=== PATIENT | male | born 1995 | race Caucasian/White ===

== ENCOUNTER 2017-04-11 20:21 | Emergency (ER) | payer MEDICAID, OTHER ==
[~2017-04-11] VITALS: Ht 170.2 cm; Wt 85.0 kg
[2017-04-11 20:55] VITALS: Ht 170.2 cm; Wt 85.0 kg
[2017-04-11] MEDS ORDERED: ONDANSETRON (ODT) 4 MG TAB ODT STA (21:25)
[2017-04-11] MEDS ORDERED: HYDROCODONE/APAP (5/325) TAB PO ONE (21:30)
[2017-04-11 22:01] LABS: ADD SCAN DIFF NO
[2017-04-11 22:06] LABS: BASOPHIL # 0.1 10^3/ul (0.0-0.1); BASOPHILS % 0.4 % (0.0-2.0); EOSINOPHILS # 0.7 10^3/ul (0.0-0.5); EOSINOPHILS % 4.6 % (0.0-7.0); HEMATOCRIT 45.2 % (42.0-52.0); HEMOGLOBIN 15.4 g/dl (14.0-18.0); LYMPHOCYTES # 2.5 10^3/ul (0.8-2.9); LYMPHOCYTES % 16.8 % (15.0-51.0); MEAN CORPUSCULAR HEMOGLOBIN 28.9 pg (29.0-33.0); MEAN CORPUSCULAR HGB CONC 34.1 g/dl (32.0-37.0); MEAN CORPUSCULAR VOLUME 84.8 fl (82.0-101.0); MEAN PLATELET VOLUME 9.3 fl (7.4-10.4); MONOCYTE # 0.9 10^3/ul (0.3-0.9); NEUTROPHIL # 10.6 10^3/ul (1.6-7.5); NEUTROPHILS % 71.9 % (39.0-77.0); PLATELET COUNT 313 10^3/UL (140-415); RED BLOOD COUNT 5.33 10^6/ul (4.70-6.10); RED CELL DISTRIBUTION WIDTH 12.3 % (11.5-14.5); WHITE BLOOD COUNT 14.7 10^3/ul (4.8-10.8)
--- NOTE | 2017-04-11 22:15 | RADRPT ---
PROCEDURE: CT abdomen and pelvis without contrast. CLINICAL INDICATION: Abdominal Pain TECHNIQUE: CT scan of the abdomen and pelvis without contrast was performed and is reconstructed a t 2.5 mm contiguous axial intervals from the dome of the diaphragm to the inferior pubic rami.. The patient was scanned without intravenous contrast. Sagittal and coronal reformatted images were obt ained from the axial source images. The calculated radiation dose measures none 701 mGy centimeters. The CTDI measures 12th mGy. COMPARISON: None. FINDINGS: The lung bases are clear of any infiltrate or nodule. No effusion is seen. The liver is of normal size and contour. There is fatty infiltration. No mass or ductal dilatation is seen. No gallstones are visualized. No splenic, adrenal or pancreatic abnormalities present. Kidneys are of normal size and contour. No calculus or solid masses present. 5 mm cortical cyst is present in the lower pole of the right kidney. There is mild right hydroureter nephrosis with a 4 mm calculus at the ureterovesicular junction. The left intrarenal collecting system and ureter are normal.. No bladder mass or stone is present. Prostate and seminal vesicles are normal. There is no aneurysm. No adenopathy is present. No bowel mass or obstruction is present. The appendix is normal. No phlegmon, ascites or pneumop eritoneum is visualized. The osseous structures are intact. IMPRESSION: Mild right hydroureter nephrosis with 4 mm calculus ureterovesicular junction. Tiny right renal cyst. Fatty liver. .Marquise Ignacio MD, Date Time Electronically viewed and signed by .Marquise Ignacio MD, on 04/11/2017 22:15 .A/
[2017-04-11 22:20] LABS: ADD UMIC YES; UR ASCORBIC ACID 40 mg/dL (NEGATIVE); UR BILIRUBIN (Dip) NEGATIVE (NEGATIVE); UR BLOOD (Dip) 2+ mg/dL (NEGATIVE); UR CLARITY CLEAR (CLEAR); UR COLOR YELLOW (YELLOW); UR GLUCOSE (Dip) NEGATIVE (NEGATIVE); UR KETONES (Dip) NEGATIVE (NEGATIVE); UR LEUKOCYTE ESTERASE (Dip) NEGATIVE Leu/ul (NEGATIVE); UR MUCUS FEW /HPF (NONE SEEN); UR NITRITE (Dip) NEGATIVE (NEGATIVE); UR RBC 24 /HPF (0-5); UR SPECIFIC GRAVITY (Dip) 1.026 (1.003-1.030); UR TOTAL PROTEIN (Dip) NEGATIVE (NEGATIVE); UR UROBILINOGEN (Dip) NEGATIVE (NEGATIVE)
[2017-04-11 22:28] LABS: ALBUMIN 5.3 g/dl (3.3-4.9); ALBUMIN/GLOBULIN RATIO 1.65; BILIRUBIN,INDIRECT 0.4 mg/dl (0-1.1); BILIRUBIN,TOTAL 0.4 mg/dl (0.2-1.3); CALCIUM 9.7 mg/dl (8.4-10.2); CREATININE 1.3 mg/dl (0.61-1.24); POTASSIUM 3.8 mmol/L (3.5-5.1); TOTAL PROTEIN 8.5 g/dl (6.1-8.1)
[2017-04-11] MEDS ORDERED: HYDR-906 PO (22:42)
[2017-04-11] MEDS ORDERED: TAMS-14 PO (22:43)
[2017-04-11 23:02] VITALS: BP 126/88; PULSE 60; RESP 16; TEMP 98.6
--- NOTE | 2017-04-12 01:03 | ERD ---
ER Documentation Chief Complaint Date/Time DATE: 04/12/17 TIME: 00:53 Chief Complaint AP x 2 months HPI This patient is a 22-year-old male presenting to the emergency department with complaints of right sided flank pain ongoing intermittently for the past 2 months. Symptoms have been worsening over the past 15 days. Aggravating factors include eating. The patient additionally had 3 episodes of vomiting today that was nonbilious and nonbloody. He denies diarrhea, fevers, chills, or other symptoms currently. ROS All systems reviewed and are negative except as per history of present illness. Medications Home Meds Active Scripts Tamsulosin Hcl* (Flomax*) 0.4 Mg Cap.er.24h, 0.4 MG PO QPM, #20 CAP Prov:JOAQUIN TYSON PA-C 04/11/17 Hydrocodone/Acetaminophen ([place] 5-325 Tablet) 1 Each Tablet, 1 TAB PO Q6H Y for PAIN, #10 TAB Prov:JOAQUIN TYSNO PA-C 04/11/17 Allergies Allergies: Coded Allergies: No Known Allergy (Unverified , 04/11/17) PMhx/Soc History of Surgery: No Anesthesia Reaction: No Hx Neurological Disorder: No Hx Respiratory Disorders: No Hx Cardiac Disorders: No Hx Psychiatric Problems: Yes (ANXIETY AND DEPRESSION.) Hx Alcohol Use: No Hx Substance Use: No Hx Tobacco Use: No Smoking Status: Never smoker Physical Exam Vitals Vital Signs Date Time Temp Pulse Resp B/P Pulse Ox O2 Delivery O2 Flow Rate FiO2 04/11/17 23:02 98.6 60 16 126/88 97 Room Air 04/11/17 20:55 98.4 85 18 142/96 Physical Exam Const: Nontoxic, well-appearing male in no acute distress. Patient is holding his right flank area. Head: Atraumatic Eyes: Normal Conjunctiva ENT: Normal External Ears, Nose and Mouth. Neck: Full range of motion..~ No meningismus. Resp: Clear to auscultation bilaterally Cardio: Regular rate and rhythm, no murmurs Abd: Soft, non tender, non distended. Normal bowel sounds Skin: No petechiae or rashes Back: No midline spinal tenderness. Right flank tenderness on palpation. No CVA tenderness. Ext: No cyanosis, or edema Neur: Awake and alert Psych: Normal Mood and Affect Result Diagram: 04/11/17213904/11/172139 Results 24 hrs Laboratory Tests Test 04/11/17 21:40 04/11/17 21:46 White Blood Count 14.710^3/ul Red Blood Count 5.3310^6/ul Hemoglobin 15.4g/dl Hematocrit 45.2% Mean Corpuscular Volume 84.8fl Mean Corpuscular Hemoglobin 28.9pg Mean Corpuscular Hemoglobin Concent 34.1g/dl Red Cell Distribution Width 12.3% Platelet Count 95354^3/UL Mean Platelet Volume 9.3fl Neutrophils % 71.9% Lymphocytes % 16.8% Monocytes % 6.0% Eosinophils % 4.6% Basophils % 0.4% Nucleated Red Blood Cells % 0.0/100WBC Neutrophils # 10.610^3/ul Lymphocytes # 2.510^3/ul Monocytes # 0.910^3/ul Eosinophils # 0.710^3/ul Basophils # 0.110^3/ul Nucleated Red Blood Cells # 0.010^3/ul Sodium Level 138mmol/L Potassium Level 3.8mmol/L Chloride Level 102mmol/L Carbon Dioxide Level 21mmol/L Anion Gap 19 Blood Urea Nitrogen 19mg/dl Creatinine 1.30mg/dl Glucose Level 98mg/dl Calcium Level 9.7mg/dl Total Bilirubin 0.4mg/dl Direct Bilirubin 0.00mg/dl Indirect Bilirubin 0.4mg/dl Aspartate Amino Transf (AST/SGOT) 41IU/L Alanine Aminotransferase (ALT/SGPT) 48IU/L Alkaline Phosphatase 101IU/L Total Protein 8.5g/dl Albumin 5.3g/dl Globulin 3.20g/dl Albumin/Globulin Ratio 1.65 Lipase 88U/L Urine Color YELLOW Urine Clarity CLEAR Urine pH 5.0 Urine Specific Caret 1.026 Urine Ketones NEGATIVEmg/dL Urine Nitrite NEGATIVEmg/dL Urine Bilirubin NEGATIVEmg/dL Urine Urobilinogen NEGATIVEmg/dL Urine Leukocyte Esterase NEGATIVELeu/ul Urine Microscopic RBC 24/HPF Urine Microscopic WBC 1/HPF Urine Calcium Oxalate Crystals FEW/HPF Urine Mucus FEW/HPF Urine Hemoglobin 2+mg/dL Urine Glucose NEGATIVEmg/dL Urine Total Protein NEGATIVEmg/dl Current Medications Medications (Trade) Dose Ordered Sig/Shannan Route PRN Reason Start Time Stop Time Status Last Admin Dose Admin Acetaminophen/ Hydrocodone Bitart ([place] (5/325)) 1 tab ONCE ONCE PO 04/11/17 21:30 04/11/17 21:31 DC 04/11/17 21:37 Ondansetron HCl (Zofran Odt) 4 mg ONCE STAT ODT 04/11/17 21:25 04/11/17 21:28 DC 04/11/17 21:37 [place] [id number] Radiology Main Line: [phone] DIAGNOSTIC IMAGING REPORT Patient: ANDREW RIVERA : 1995 Age: 22 Sex: M MR #: [id number] DOS: 04/11/172124 Ordering MD: JOAQUIN TYSON PA-C Location: [facility] Room/Bed: PROCEDURE: CT abdomen and pelvis without contrast. CLINICAL INDICATION: Abdominal Pain TECHNIQUE: CT scan of the abdomen and pelvis without contrast was performed and is reconstructed at 2.5 mm contiguous axial intervals from the dome of the diaphragm to the inferior pubic rami.. The patient was scanned without intravenous contrast. Sagittal and coronal reformatted images were obtained from the axial source images. The calculated radiation dose measures none 701 mGy centimeters. The CTDI measures 12th mGy. COMPARISON: None. FINDINGS: The lung bases are clear of any infiltrate or nodule. No effusion is seen. The liver is of normal size and contour. There is fatty infiltration. No mass or ductal dilatation is seen. No gallstones are visualized. No splenic, adrenal or pancreatic abnormalities present. Kidneys are of normal size and contour. No calculus or solid masses present. 5 mm cortical cyst is present in the lower pole of the right kidney. There is mild right hydroureter nephrosis with a 4 mm calculus at the ureterovesicular junction. The left intrarenal collecting system and ureter are normal.. No bladder mass or stone is present. Prostate and seminal vesicles are normal. There is no aneurysm. No adenopathy is present. No bowel mass or obstruction is present. The appendix is normal. No phlegmon , ascites or pneumoperitoneum is visualized. The osseous structures are intact. IMPRESSION: Mild right hydroureter nephrosis with 4 mm calculus ureterovesicular junction. Tiny right renal cyst. Fatty liver. .Marquise Ignacio MD, MD Date Time Electronically viewed and signed by .Marquise Ignacio MD, MD on 04/11/2017 22: 15 .A/ CC: JOAQUIN TYSON PA-C Procedures/[facility] EMERGENCY DEPARTMENT COURSE / MEDICAL DECISION MAKING: This is a 22-year-old male who comes to the emergency room secondary to complaints of right flank pain The patient was given p.o. Zofran and p.o. [place] in the department. On re- evaluation, the patient was feeling improved. Lab results reviewed. CBC: Slight leukocytosis Chemistry: No significant acute abnormalities UA: Findings positive for oxalate crystals indicating kidney stone Lipase: Within normal limits Radiology: CT scan abdomen without contrast impression: Mild right hydroureter nephrosis with 4 mm calculus ureterovesicular junction. Tiny right renal cyst. Fatty liver. The primary diagnosis is kidney stone I have low suspicion for cholecystitis, bowel obstruction, appendicitis, mesenteric ischemia, sepsis, or other emergent conditions at this time. Discharge: I have discussed the lab results and diagnostic findings with the patient and answered any questions or concerns. The patient was discharged with a prescription for [place] and Flomax. The patient was advised to followup with their PMD in 1-2 days and to return to the Emergency Department if there are any new or worsening symptoms. The patient understood and agreed with the diagnosis, treatment and plan. The patient is stable for discharge at this time. I discussed this case with Dr. Kay Scott, supervising ED physician who agreed with the history, clinical examination, assessment, plan, and overall ED course. Departure Diagnosis: Primary Impression: Kidney stone Condition: Fair Patient Instructions: Kidney Stone W/ Colic [facility] Usted se chapin hecho un examen mdico de control que le indica que no est en digna condicin que requiera tratamiento urgente en el Departamento de Emergencia. Un estudio ms profundo y el tratamiento de davila condicin pueden esperar sin ningn riesgo hasta que usted sea atendida/o en el consultorio de davila mdico o digna cl sarah. Es responsabilidad suya arreglar digna anayeli para el seguimiento del leslee. MANEJO DE CONDICIONES NO URGENTES EN EL FUTURO 1) Si usted tiene un mdico de atencin primaria: Usted debera llamar a davila mdico de atencin primaria antes de venir al departamento de emergencia. Despus de las horas de consultorio, davila doctor o davila asociado/a est disponible por telfono. El mdico o enfermero de jeff en el servicio telefnico puede asesorarle por callum medio para atender el problema, o leslee contrario se puede programar digna anayeli. 2) Si usted no tiene un mdico de atencin primaria: Llame al mdico o clnica de referencia que aparece abajo izabella las horas de consultorio para hacer digna anayeli para que le vean. CLINICAS: [facility] [phone] [facility] [phone] [facility]. [facility] [phone] [facility] [facility] [phone] [place] [id number] [phone] [facility]. [phone] Additional Instructions: No mas mejor en 2-3 rao, regresar. Mas peor en 24 horas, regresear rapidamente. Ir a doctor primario in 5-7 rao. Usar instrucciones cuando heidy medicamento. JOAQUIN TYSON PA-C Apr 12, 2017 01:03
== END 2017-04-11 23:04 | disposition home or self-care (01) ==
LOC: FTE 20:21
DX: N20.0 Calculus of kidney (principal); R11.10 Vomiting, unspecified
CPT/HCPCS: 74176; 80053; 81001; 83690; 85025; Z7610; 36415

== ENCOUNTER 2017-10-12 18:24 | Emergency (ER) | END 2017-10-13 17:47 | disposition home or self-care (01) ==